=== PATIENT | female | born 1985 ===

== ENCOUNTER 2018-09-17 04:01 | Inpatient (IN) | payer BC ==
[2018-09-17 04:31] VITALS: BMI 30.9
[2018-09-17] MEDS ORDERED: cefOXitin IV 2 gm in Dextrose 2 GM/50 ML BAG IVPB ONE ×2 (04:36→05:29)
[2018-09-17] MEDS ORDERED: Sodium Citrate/Citric Acid 15 ml Sol PO ONE (04:36)
[2018-09-17] MEDS ORDERED: Lactated Ringer's 1,000 ML IV ONE (04:36)
[2018-09-17] MEDS ORDERED: Oxycodone/Acetaminophen 5/325 mg Tab PO PRN (04:51)
[2018-09-17] MEDS ORDERED: Tdap Vaccine 0.5 ml Vial (10-64 yrs) IM ONE (04:53)
[2018-09-17 05:08] LABS: BASO # 0.1 K/uL (0.0-0.2); BASO % 0.5 % (0.0-2.0); EOS # 0.1 K/uL (0.0-0.7); EOS % 1.2 % (0.0-4.0); HEMOGLOBIN 12.7 g/dL (11.0-16.0); LYMPH # 3.9 K/uL (1.0-4.3); LYMPH % 36.3 % (20.0-40.0); MEAN CELL VOLUME 84.5 fL (81.0-99.0); MEAN CORPUSCULAR HEMOGLOBIN 28.4 pg (27.0-31.0); MEAN CORPUSCULAR HGB CONC 33.7 g/dL (33.0-37.0); MEAN PLATELET VOLUME 9.4 fL (7.2-11.7); MONO # 0.8 K/uL (0.0-0.8); MONO % 7.3 % (0.0-10.0); NEUT # 5.9 K/uL (1.8-7.0); NEUT % 54.7 % (50.0-75.0); RBC 4.46 Mil/uL (3.80-5.20); RED CELL DISTRIBUTION WIDTH 15.1 % (11.5-14.5); WHITE BLOOD COUNT 10.8 K/uL (4.8-10.8)
--- NOTE | 2018-09-17 05:20 | OBHP ---
Datetime: 09/17/2018 04:51 IP Adm Impression: Term, intrauterine ; Active labor; Intact Membranes IP Admit Plan: Initiate Section protocol Admit Comment, IP Provider: 33 yo female with an IUP at 38 weeks with Hx of previous C/S and i n early labor. Will admit for elective repeat C/S, as per Dr. Flores. Denies LOF, VB or VD and admits to Adequate FM. PMHx Denies PSHx C/S x 1 NKDA Meds PNV Social Hx Denies x 3 Pelvic Type - PN: Adequate Extremities - PN: Normal Abdomen - PN: Normal Back - PN: Normal Breast - PN: Not Done Lungs - PN: Normal Heart - PN: Normal Thyroid - PN: Normal Neurologic - PN: Normal HEENT - PN: Normal General - PN: Normal Presentation-Admit: Vertex FHR - Baseline A Provider: 150 Membranes, Provider: Intact Contraction Comments Provider: 2 minutes Gestation - Est Wks by US: 38.0 EGA AdmitDate IP: 38.0 Vital Signs Provider: Reviewed IP Indication for Induction: Not Applicable IP Chief Complaint: Uterine contractions NICHD Variability Prov Fetus A: Moderate 6-25bpm NICHD Accel Fetus A IP Provider: 10X10 FHR Category Provider Fetus A: Category I NICHD Decel Fetus A IP Provider: Variable Dilatation, Provider: 2 Effacement, Provider: 60 Station, Provider: -2 Genitourinary Exam: Normal DTRs - PN: Normal
[2018-09-17 05:29] LABS: SQUAMOUS EPITHIAL 9 /hpf (0-5); URINE BACTERIA OCC (<OCC); URINE BILIRUBIN NEGATIVE (NEGATIVE); URINE BLOOD NEGATIVE (NEGATIVE); URINE CLARITY Hazy (Clear); URINE COLOR Yellow (YELLOW); URINE GLUCOSE (UA) NORMAL (Normal); URINE LEUKOCYTE ESTERASE 2+ Leu/uL (Negative); URINE PROTEIN NEGATIVE (NEGATIVE); URINE UROBILINOGEN NORMAL mg/dL (0.2-1.0)
[2018-09-17] MEDS ORDERED: Sodium Citrate/Citric Acid 15 ml Sol ONE (05:29)
[2018-09-17 05:31] LABS: ALB/GLOB RATIO 1.2 (1.0-2.1); ALBUMIN 3.7 g/dL (3.5-5.0); ALT/SGPT 13 U/L (9-52); AST/SGOT 19 U/L (14-36); BLOOD UREA NITROGEN 7 mg/dL (7-17); GFR NON-AFRICAN AMERICAN > 60
[2018-09-17] MEDS ORDERED: Morphine 1 mg/ml preservative-free Inj(Duramorph) ONE ×2 (05:37→05:42)
[2018-09-17] MEDS ORDERED: Phenylephrine 10 mg/ml Inj ONE (05:37)
[2018-09-17] MEDS ORDERED: Bupivacaine HCl 15 mg/2 ml Spinal Inj ONE (05:38)
--- NOTE | 2018-09-17 05:48 | OBADHP ---
Datetime: 09/17/2018 04:51 IP Chief Complaint Other: pevious cesaren section (Annotations: Data stored by CPN on behalf of user ) Admit Comment, IP Provider: 33 yo female with an IUP at 38 weeks with Hx of previous C/S and i n early labor. Will admit for elective repeat C/S, as per Dr. Flores. Denies LOF, VB or VD and admits to Adequate FM. PMHx Denies PSHx C/S x 1 NKDA Meds PNV Social Hx Denies x 3 A/P Term in early labor Previous C/S x 1 Admitted for elective repeat C/S Dr. Flores in house Pelvic Type - PN: Adequate Extremities - PN: Normal Abdomen - PN: Normal Back - PN: Normal Breast - PN: Not Done Lungs - PN: Normal Heart - PN: Normal Thyroid - PN: Normal Neurologic - PN: Normal HEENT - PN: Normal General - PN: Normal Presentation-Admit: Vertex FHR - Baseline A Provider: 150 Membranes, Provider: Intact Contraction Comments Provider: 2 minutes Gestation - Est Wks by US: 38.0 IP Hx Assessment: The History has been Reviewed and is Current Vital Signs Provider: Reviewed IP Chief Complaint: Uterine contractions NICHD Variability Prov Fetus A: Moderate 6-25bpm NICHD Accel Fetus A IP Provider: 10X10 FHR Category Provider Fetus A: Category I NICHD Decel Fetus A IP Provider: Variable Dilatation, Provider: 2 Effacement, Provider: 60 Station, Provider: -2 Genitourinary Exam: Normal DTRs - PN: Normal EGA AdmitDate IP: 38.0 IP Adm Impression: Term, intrauterine ; Active labor; Intact Membranes IP Admit Plan: Initiate Section protocol
[2018-09-17] MEDS ORDERED: Oxytocin 10 Units/ml Inj ONE (06:03)
[2018-09-17] MEDS: Prenatal Multivit/Folic Acid/Iron Tab PO SCH (10:10)
[2018-09-17] MEDS: Simethicone 80 mg Chewtab PO SCH ×4 (10:10→22:19)
[2018-09-18] MEDS: Oxycodone/Acetaminophen 5/325 mg Tab PO PRN ×4 (02:14→21:53)
[2018-09-18 08:09] LABS: MEAN CELL VOLUME 86.3 fL (81.0-99.0); MEAN CORPUSCULAR HEMOGLOBIN 28.9 pg (27.0-31.0); MEAN CORPUSCULAR HGB CONC 33.4 g/dL (33.0-37.0); MEAN PLATELET VOLUME 9.3 fL (7.2-11.7); RBC 3.61 Mil/uL (3.80-5.20); RED CELL DISTRIBUTION WIDTH 15.1 % (11.5-14.5); WHITE BLOOD COUNT 10.7 K/uL (4.8-10.8)
[2018-09-18 08:15] LABS: HEMOGLOBIN 10.4 g/dL (11.0-16.0)
[2018-09-18] MEDS: Simethicone 80 mg Chewtab PO SCH ×4 (10:18→21:53)
[2018-09-18] MEDS: Prenatal Multivit/Folic Acid/Iron Tab PO SCH (10:18)
--- NOTE | 2018-09-18 14:23 | OBPPN ---
Datetime: 09/18/2018 11:01 PP Pain Prov: Within normal limits PP Nausea Prov: Denies PP Flatus Prov: Yes PP BM Prov: No PP Breasts Prov: Normal PP Heart Prov: Normal PP Lungs Prov: Normal PP Abdomen/Uterus Prov: Normal PP Lochia Prov: Normal PP Vulva/Perineum Prov: Normal PP CVA Tenderness Prov: Normal PP Extremities Prov: Normal PP C/S Incision Prov: Normal PP Progress Prov: Normal PP Comments Phys Exam Prov: surgical wound clean, dry, intact, fundal height slightly above umbilicu s PP Impression Prov: Normal progression PP Plan Prov: Continue present management PP Progress Note Prov: SUBJECTIVE: Patient was seen and examined at bedside this AM. She reports generally feeling well and states he r pain has been managed well so far. She states she has not had much to drink since yesterday evening . She states she has been out of bed to chair but has not yet ambulated in hallways. She had some rambo sea yesterday before transfer to maternity unit but is now tolerating regular diet well without nause a/vomiting. She has not yet had a BM but admits to flatus. She is breast and bottle feeding and has b een attempting to breast feed every hour since last night. OBJECTIVE: H/H decreased from 12.7/37.7 to 10.4/31.2 this AM and asymptomatic. Otherwise normal physical exam findings as above ASSESSEMENT: 33 yo F now s/p repeat c/s POD 1. Stable and Satisfactory condition and recovery PP H_H 10.4/31.2 B+ PLAN: Encourage patient to continue increasing po water intake, especially as she is attempting to breas t feed. Encourage patient to start ambulating in the hallway regularly in addition to walking around her room. Continue bowel regimen with colace, simethicone. Will start feosol 325 mg BID to be taken w ith colace. Recheck CBC in AM. Patient seen, examined, and plan discussed with my attending Dr. Grissom covering for Dr. Mark Martinez, DO, PGY-1 IP PP Procedures: None Vital Signs Provider PP: Reviewed; Within Normal Limits
[2018-09-19 07:28] LABS: HEMOGLOBIN 10.4 g/dL (11.0-16.0); MEAN CELL VOLUME 85.4 fL (81.0-99.0); MEAN CORPUSCULAR HEMOGLOBIN 28.2 pg (27.0-31.0); MEAN CORPUSCULAR HGB CONC 33.1 g/dL (33.0-37.0); MEAN PLATELET VOLUME 8.6 fL (7.2-11.7); RBC 3.69 Mil/uL (3.80-5.20); RED CELL DISTRIBUTION WIDTH 15.6 % (11.5-14.5); WHITE BLOOD COUNT 12.9 K/uL (4.8-10.8)
[2018-09-19 08:23] VITALS: RESP 18
--- NOTE | 2018-09-19 08:59 | OBPPN ---
Datetime: 09/19/2018 08:56 PP Pain Prov: Within normal limits PP Nausea Prov: Denies PP Flatus Prov: Yes PP BM Prov: Yes PP Lungs Prov: Normal PP Abdomen/Uterus Prov: Normal PP Lochia Prov: Normal PP Comments Phys Exam Prov: Exam: Incision clean and dry. Uterus firm , below umbilicus Etr: No calf thenderness PP Impression Prov: Normal progression PP Plan Prov: Continue present management PP Progress Note Prov: POD #2 Pt doing well. No complaints today. Tolerating regular diet. No nausea, vomiting. DC Heplock Continue current management IP PP Procedures: None Vital Signs Provider PP: Reviewed
[2018-09-19] MEDS: Prenatal Multivit/Folic Acid/Iron Tab PO SCH (09:34)
[2018-09-19] MEDS: Simethicone 80 mg Chewtab PO SCH ×4 (09:34→21:13)
[2018-09-19] MEDS ORDERED: Influenza Vaccine 60 MCG/0.5 ML SYR (3 yr & up) IM ONE (10:00)
[2018-09-19] MEDS ORDERED: Tdap Vaccine 0.5 ml Vial (10-64 yrs) IM ONE (13:45)
[2018-09-20 08:21] VITALS: BP 121/75; PULSE 98; O2SAT 99
[2018-09-20] MEDS: Simethicone 80 mg Chewtab PO SCH (09:08)
[2018-09-20] MEDS: Prenatal Multivit/Folic Acid/Iron Tab PO SCH (09:09)
[2018-09-20] MEDS ORDERED: Influenza Vaccine 60 MCG/0.5 ML SYR (3 yr & up) IM ONE (10:00)
--- NOTE | 2018-09-20 11:26 | OBPPN ---
Datetime: 09/20/2018 11:15 PP Pain Prov: Within normal limits PP Nausea Prov: Denies PP Flatus Prov: Yes PP BM Prov: Yes PP Breasts Prov: Not Done PP Heart Prov: Normal PP Lungs Prov: Normal PP Abdomen/Uterus Prov: Normal PP Lochia Prov: Normal PP Vulva/Perineum Prov: Normal PP CVA Tenderness Prov: Normal PP Extremities Prov: Normal PP C/S Incision Prov: Normal PP Comments Phys Exam Prov: Fundus firm, non-tender and below Umbilicus Incision clean, dry and intact PP Impression Prov: Normal progression PP Plan Prov: Continue present management; Discharge PP Progress Note Prov: Pt seen and exasmined per Dr. Flores's request POD # 3 S/P Repeat C/S PP H_H 10.4/31.5 Stable and Satisfactory condition and recovery Will D/C home with instructions and Rx for Motrin and Percocet, per Dr. Flores Advised to increase Fe rich foods in diet as well as water po Will f/up with Dr. Flores in 5-7 days for post-Op check Will continue pelvic rest x 6-8 weeks IP PP Procedures: None Vital Signs Provider PP: Reviewed; Within Normal Limits
--- NOTE | 2018-09-20 11:28 | OBDCSUM ---
Datetime: 09/20/2018 08:31 Discharged to, Provider: Home Follow up at, Provider: Dr Flores Disch Instr Activity: Normal activity; May Shower Disch Instr Diet: Regular Discharge Diet restrict Prov: none Discharge Instructions, Provider: Routine instructions given Discharge Diagnosis, Provider: Term Delivered Discharge Time: 09/20/2018 10:00 Follow up in weeks, Provider: 5-7 days Disch Referrals: None Contraception discussed, Prov: Yes Disch Activity Restrictions: No exercising; No lifting; No sexual activity; Nothing in vagina - Inte rcourse, tampons, douche Discharge Comment, Provider: KALEN H_H 10.4/31.5 Stable and Satisfactory condition and recovery Will D/C home with instructions and Rx for Motrin and Percocet, per Dr. Flores Advised to increase Fe rich foods in diet as well as water po Will f/up with Dr. Flores in 5-7 days for post-Op check Will continue pelvic rest x 6-8 weeks Contraception after Delivery: Undecided
[2018-09-20 17:30] VITALS: TEMP 97
--- NOTE | 2018-09-28 18:04 | OP ---
PROCEDURE DATE: 09/17/2018 PREOPERATIVE DIAGNOSES: A 33-year-old 2, para 1 at 38 plus with abdominal pain, repeat section. POSTOPERATIVE DIAGNOSES: A 33-year-old 2, para 1 at 38 plus with abdominal pain, repeat section. SURGEON: August Flores MD STONE CARVER: Heriberto Stroud MD TYPE OF ANESTHESIA: Spinal anesthesia. ANESTHESIOLOGIST: Doreen Alfaro MD COMPLICATIONS: None. DESCRIPTION OF PROCEDURE: After informed consent was obtained, the patient was brought to the operating room, placed on the table where spinal anesthesia was given. Once the anesthesia was given, the patient was prepped and draped in normal sterile fashion. Examination was performed. At the site of the previous skin incision, incision was made with a knife; the subcutaneous cut with a Bovie and the fascia was excised on both the sides using curved Daley scissors. The fascia was from the site of the umbilicus and then at the site of the rectal muscle the fascia was . Rectus muscle was . The peritoneum was incised and we went into the abdominal cavity. Bladder blade was placed. Bladder flap was created. The lower uterine segment incision was made with a Knife. Cord was clamped and cut, baby was handed to the awaiting software validation engineer. Uterus was cleaned of clots and all debris. The uterine incision was closed with #1 Vicryl in running interlocking fashion. Second layer was closed with the same stitch. The uterus, tubes, and ovaries were normal. Then the uterus was returned back to the abdominal cavity. Gutters were cleared of clots and debris. After that, peritoneum was closed using 2-0 Vicryl in running interlocking fashion. The fascia was then closed using 1-0 Vicryl in running interlocking fashion. Skin was closed using 3-0 Monocryl on straight needle. The patient tolerated the procedure well. Lap, sponge, and instrument counts were correct x2. August Flores MD
--- NOTE | 2018-09-28 18:49 | OBDS ---
DELIVERY PERSONNEL Delivery Doctor: August Flores MD Scrub Nurse: Ayana Rocha OBT Worship Director: Catrachita Kingsley RN Anesthesiologist: MATERNAL INFORMATION Delivery Anesthesia: Spinal Medications in Delivery: Pitocin Estimated Blood Loss (ml): 800 Placenta Cultured: Yes Maternal Complications: None RN Comments: live baby boy born via repeat c/section Provider Comments: dr flores private baby deliverd in dop. emd clean 9/9 no com LABOR SUMMARY EDC: 10/01/2018 00:00 No. Babies in Womb: 1 LABOR INFORMATION Reason for Induction: Not Applicable Group B Beta Strep: Not Done STAGES OF LABOR Stage 3 hrs: 0 Stage 3 min: 1 VAGINAL DELIVERY Episiotomy: None Laceration Extension: N/A Laceration Type: None CSECTION DELIVERY Primary Indication: Repeat Elective Secondary Indication: Repeat Elective CSection Urgency: Elective CSection Incidence: Repeat Labor: No Labor CSection Incision: Lower Uterine Transverse BABY A INFORMATION Delivery Date/Time: 09/17/2018 05:57 Method of Delivery: Born in Route : No : N/A Forceps: N/A Vacuum Extraction: N/A Shoulder Dystocia : No SHOULDER DYSTOCIA BABY A Infant Delivery Date/Time: 09/17/2018 05:57 PRESENTATION/POSITION BABY A Presentation: Cephalic Cephalic Presentation: Vertex Breech Presentation: N/A PLACENTA INFORMATION BABY A Placenta Delivery Time : 09/17/2018 05:58 Placenta Method of Delivery: Manual Removal Placenta Status: Delivered SCORES BABY A Heart Rate 1 min: >100 bpm Resp Effort 1 min: Good Cry Reflex Irritability 1 min: Cough or Sneeze or Pulls Away Muscle Tone 1 min: Active Motion Color 1 min: Body [place], Extremities Blue SCORE 1 MIN: 9 Heart Rate 5 min: >100 bpm Resp Effort 5 min: Good Cry Reflex Irritability 5 min: Cough or Sneeze or Pulls Away Muscle Tone 5 min: Active Motion Color 5 min: Body [place], Extremities Blue SCORE 5 MIN: 9 INFORMATION BABY A Gestational Age at Delivery: 38.0 Gestational Status: Term Outcome : Liveborn Infant Condition : Stable Infant Sex: Male IDENTIFICATION/MEDS BABY A ID Band Number: [id number] ID Band Location: Left Leg; Left Arm Sensor Applied: Yes Sensor Number: [id number] Sensor Location : Cord Clamp WEIGHT/LENGTH BABY A Birthweight (gms): 2870 Weight (lb): 6 Weight (oz): 5 Length Inches: 19.00 Infant Length cms: 48.3 CORD INFORMATION BABY A No. Cord Vessels: 3 Nuchal Cord : Around Neck x1, Loose Cord Blood Taken: Yes Infant Suction: Mouth; Nose ASSESSMENT BABY A Infant Complications: None Physical Findings at Delivery: Within Normal Limits Respirations: Appears Normal Supervisor Hydrochloric Area/ALS Called : No Infant Care By: Transferred To: Remains with Mother
== END 2018-09-20 13:10 | disposition home or self-care (01) | DRG 788 ==
LOC: C.EROB 04:01 → C.4D 04:32 → UNDOADMIN 04:50 → C.4M 08:56
PROVIDERS: ADMIT Obstetrics & Gynecology; ATTEND Obstetrics & Gynecology
PROC: 10D00Z1 Extraction of Products of Conception, Low, Open Approach (ICD-10-PCS; principal; 2018-09-17)
DX: O34.219 Maternal care for unspecified type scar from previous cesarean delivery (principal); Z37.0 Single live birth; Z3A.38 38 weeks gestation of pregnancy